=== PATIENT | female | born 1970 | race Caucasian/White ===

== ENCOUNTER 2022-10-26 07:26 | Day surgery (SDC) | payer MEDICAID ==
[~2022-10-26] VITALS: Ht 167.6 cm; Wt 86.2 kg
[2022-10-26] MEDS ORDERED: fentaNYL citrate 0.05 MG/ML VIAL ONE (07:40)
[2022-10-26] MEDS ORDERED: diphenhydrAMINE 50 MG/ML VIAL ONE (07:40)
[2022-10-26] MEDS ORDERED: MIDAZOLAM 5 MG/5 ML VIAL ONE (07:40)
[2022-10-26] MEDS ORDERED: diphenhydrAMINE 50 MG/ML VIAL IVP ONE (08:35)
[2022-10-26] MEDS ORDERED: MIDAZOLAM 2 MG/2 ML VIAL IVP ONE (08:35)
[2022-10-26] MEDS ORDERED: fentaNYL citrate 0.05 MG/ML VIAL IVP ONE (08:35)
== END 2022-10-26 10:42 | disposition home or self-care (01) ==
LOC: MDS 07:26 → MMU 07:27 → MDS 10:42
PROVIDERS: ATTEND Internal Medicine Gastroenterology
DX: R13.10 Dysphagia, unspecified (principal); K29.50 Unspecified chronic gastritis without bleeding; K21.00 Gastro-esophageal reflux disease with esophagitis, without bleeding; F32.A Depression, unspecified; Z20.822 Contact with and (suspected) exposure to COVID-19; Z85.3 Personal history of malignant neoplasm of breast; Z90.49 Acquired absence of other specified parts of digestive tract; Z79.899 Other long term (current) drug therapy; Z92.3 Personal history of irradiation; Z92.21 Personal history of antineoplastic chemotherapy
CPT/HCPCS: 43239; 87426; J1200; J2250; J3010

== ENCOUNTER 2024-04-03 06:33 | Day surgery (SDC) | payer MEDICAID ==
[~2024-04-03] VITALS: Ht 160 cm; Wt 93.4 kg
[2024-04-03] MEDS ORDERED: fentaNYL citrate 0.05 MG/ML VIAL ONE (07:41)
[2024-04-03] MEDS ORDERED: LIDOCAINE 2% 100 MG/5 ML UJET TP ONE ×2 (07:41→09:00)
[2024-04-03] MEDS: fentaNYL citrate 0.05 MG/ML VIAL IVP ONE (07:59)
[2024-04-03] MEDS ORDERED: MIDAZOLAM 2 MG/2 ML VIAL ONE (08:11)
[2024-04-03] MEDS: MIDAZOLAM 2 MG/2 ML VIAL IVP ONE (08:13)
== END 2024-04-03 09:40 | disposition home or self-care (01) ==
LOC: MOR 06:33 → MMU 06:40 → MOR 09:40
PROVIDERS: ATTEND Internal Medicine Gastroenterology
DX: R10.32 Left lower quadrant pain (principal); K62.5 Hemorrhage of anus and rectum; K64.4 Residual hemorrhoidal skin tags; F41.9 Anxiety disorder, unspecified; F32.A Depression, unspecified; Z90.710 Acquired absence of both cervix and uterus; Z91.041 Radiographic dye allergy status; Z79.899 Other long term (current) drug therapy; Z98.890 Other specified postprocedural states
CPT/HCPCS: 45378; J2250; J3010